=== PATIENT | male | born 1970 | race Caucasian/White ===

== ENCOUNTER 2025-04-01 09:54 | Outpatient (CLI) | payer OTHER, SELFPAY ==
--- NOTE | 2025-04-01 10:15 | MR_ITS ---
EXAM: MRI EXAMINATION OF THE RIGHT SHOULDER CLINICAL INFORMATION: Right shoulder pain. History of injury. No history of surgery to this area. Evaluate rotator cuff tear. TECHNICAL INFORMATION: Coronal STIR as well as axial, sagittal and coronal PD and T2-weighted images were acquired. No prior studies for comparison. INTERPRETATION: Bones: There is no Hill-Sachs impaction deformity. No other occult fracture or osseous contusion. No other bone marrow edema pattern. Rotator Cuff: There is a full-thickness, full width tear of the supraspinatus tendon. Full-thickness tear continues involving the anterior two thirds of the infraspinatus tendon. Tendon retraction is midway between the glenohumeral joint and mid humeral head level. No fatty muscle belly atrophy. The teres minor tendon is intact. There is a 1.4 cm craniocaudal intrasubstance and deep surface fiber partial tear involving the superior subscapularis tendon. Coracoacromial arch: There is no discrete subacromial osseous spur. The bony acromiohumeral interval is measuring 3 to 4 mm. There is no thickening identified of the coracoacromial ligament. Acromioclavicular joint: Right AC joint DJD. No deformity of the underlying supraspinatus tendon. Biceps tendon: There is complete medial dislocation of the long head biceps tendon from the bicipital groove. The tendon remains intact to its superior glenoid attachment. Glenohumeral joint and labrum: There is a small glenohumeral joint effusion. No discrete loose body within the joint. Osteochondral surfaces appear relatively preserved. Tear appears present involving the superior aspect of the labrum. No other definite evidence for labral tear. No discrete paralabral cyst is identified. CONCLUSION: 1. Full thickness, full width tear of the supraspinatus tendon continues involving the anterior two thirds of the infraspinatus tendon. Tendon retraction is midway between the glenohumeral joint and mid humeral head level. No fatty muscle belly atrophy. 2. There is a moderate-sized segment of intrasubstance and deep surface fiber partial tear of the superior subscapularis tendon. 3. Biceps keiyl lesion with complete medial dislocation of the long head biceps tendon from the bicipital groove. The tendon remains intact to the superior glenoid attachment. 4. Mild AC joint DJD with moderate to marked narrowing of the acromiohumeral interval. 5. No appreciable changes of glenohumeral chondromalacia. Tearing appears present involving the superior labrum. KES Electronically signed on 04/01/2025 5:07:00 PM by Krzysztof Villalobos M.D.
== END 2025-04-01 09:55 | disposition home or self-care (01) ==
LOC: MRI 09:56
PROVIDERS: PCP Family Medicine; Visit Provider Orthopaedic Surgery
DX: M25.511 Pain in right shoulder (principal); M75.101 Unspecified rotator cuff tear or rupture of right shoulder, not specified as traumatic; M19.011 Primary osteoarthritis, right shoulder
CPT/HCPCS: 73221